=== PATIENT | female | born 1950 | race Caucasian/White ===

== ENCOUNTER 2020-12-02 10:20 | Outpatient (CLI) | payer MEDICARE ==
[~2020-12-02] VITALS: Ht 162.6 cm; Wt 87.5 kg
[2020-12-02 10:18] VITALS: BP 157/75
[~2020-12-02 10:20] MED LIST: ALLO300T2 PO; BP pill; HYDR-3062 PO; MONT10TA21 PO; ONDA4TAB11 PO; [UNRECOGNIZED DRUG - REMARK]; [UNRECOGNIZED DRUG - REMARK]
[2020-12-02] MEDS ORDERED: diphenhydrAMINE 50 MG/ML INJ (BENADRYL) IV PRN (10:30)
[2020-12-02] MEDS ORDERED: ONDANSETRON 4 MG/2 ML (SDV) Z0FRAN IV PRN (10:30)
[2020-12-02] MEDS ORDERED: EPINEPHrine INJECTION 1 MG/ML AMP IM PRN (10:30)
[2020-12-02] MEDS ORDERED: ACETAMINOPHEN 500 MG TAB (TYLENOL) PO PRN (10:30)
[2020-12-02] MEDS ORDERED: CASIRIVIMAB/IMDEVIMAB 1,200 MG in NS (IVPB) 250 ML IV ONE (10:30)
[2020-12-02 12:15] VITALS: BP 128/64
== END 2020-12-02 12:24 | disposition home or self-care (01) ==
LOC: INFUSION 10:20
PROVIDERS: ATTEND Student in an Organized Health Care Education/Training Program
DX: U07.1 COVID-19 (principal)